=== PATIENT | male | born 1950 | race Hispanic/Latino ===

== ENCOUNTER 2018-07-10 07:12 | Inpatient (IN) | payer OTHER | END 2018-07-12 21:47 | LOC: DAHIP 07:12 → 4AH 12:59 | PROC: 0SRC0JZ Replacement of Right Knee Joint with Synthetic Substitute, Open Approach (ICD-10-PCS; principal; 2018-07-10 09:59) | PROC: XR2G021 Monitoring of Right Knee Joint using Intraoperative Knee Replacement Sensor, Open Approach, New Technology Group 1 (ICD-10-PCS; 2018-07-10 09:59) | DX: M17.11 Unilateral primary osteoarthritis, right knee (principal); Z96.651 Presence of right artificial knee joint ==

== ENCOUNTER → 2024-11-10 | Outpatient (CLI) | payer OTHER ==
[~2024-11-10] MED LIST: AMLO-257 PO; ASPI-1012 PO; CETI10CA5 PO; HYDR-4457 PO; OMEP40CA21 PO; POLYETHYLENE GLYCOL PO; SIMV-43 PO; VALS40TA11 PO
--- NOTE | 2024-11-10 13:00 | HMCIMG ---
Exam Type: CHEST 2VWS Clinical Information: PRE OP Comparison: None Findings: The lungs are clear of infiltrates. The heart is normal in size. The bony and soft tissue structures of the chest are unremarkable. Impression: Clear lungs.
== END | disposition home or self-care (01) ==
LOC: RAH 12:24
PROVIDERS: ATTEND Family Medicine
DX: Z01.818 Encounter for other preprocedural examination (principal)
CPT/HCPCS: 71046